=== PATIENT | female | born 1940 | race Two or more races ===

== ENCOUNTER 2023-03-09 11:00 | Emergency (ER) | payer OTHER ==
[~2023-03-09] VITALS: Ht 157.5 cm; Wt 45.4 kg
== END 2023-03-09 14:26 | disposition home or self-care (01) ==
LOC: ER 11:00
DX: M25.552 Pain in left hip (principal); M25.551 Pain in right hip; Z91.011 Allergy to milk products; Z88.0 Allergy status to penicillin; Z91.018 Allergy to other foods